=== PATIENT | female | born 1955 | race Two or more races ===

== ENCOUNTER 2019-01-28 11:27 | Outpatient (CLI) | payer OTHER ==
[~2019-01-28 11:27] MED LIST: CONEX TABLET1 EACH PO; FLONASE16 GM NS
== END 2019-01-28 11:35 | disposition home or self-care (01) ==
LOC: LAB 11:27
DX: A43.8 Other forms of nocardiosis (principal)

== ENCOUNTER 2020-09-25 11:03 | Outpatient (CLI) | payer OTHER | END 2020-09-25 11:14 | disposition home or self-care (01) | LOC: RAD 11:03 | PROVIDERS: ATTEND Specialist | DX: K21.9 Gastro-esophageal reflux disease without esophagitis (principal); R07.89 Other chest pain; M17.0 Bilateral primary osteoarthritis of knee ==

== ENCOUNTER 2023-05-17 09:07 | Emergency (ER) | payer OTHER ==
[~2023-05-17] VITALS: Ht 160 cm; Wt 78.5 kg
[2023-05-17] MEDS ORDERED: TUSNEL LIQUID178 ML PO (09:27)
[2023-05-17] MEDS ORDERED: PROAIR RESPICL90 MCG IH (09:27)
[2023-05-17] MEDS ORDERED: PAXLOVID 300-11 EACH PO (09:27)
== END 2023-05-17 09:35 | disposition home or self-care (01) ==
LOC: ER 09:07
DX: U07.1 COVID-19 (principal); Z91.041 Radiographic dye allergy status
CPT/HCPCS: 96372; 99284; J1100